=== PATIENT | female | born 1955 | race American Indian/Alaskan Native ===

== ENCOUNTER 2020-09-21 07:49 | Emergency (ER) | payer MEDICARE, OTHER ==
[2020-09-21 08:00] VITALS: BP 174/94
[2020-09-21] MEDS ORDERED: KETOROLAC 10 MG TAB PO ONE (08:39)
--- NOTE | 2020-09-21 10:13 | Emergency Department Report ---
ED General Adult HPI - General Chief complaint: Extremity Problem,Nontraumatic Stated complaint: NECK/ARM PAIN Time Seen by Provider: 09/21/20 08:36 Source: patient Mode of arrival: Ambulatory Limitations: No Limitations - History of Present Illness Initial comments: 65-year-old -[place] female patient with history of diabetes and hypertension presents with complaints of left-sided neck pain radiating down her arm with itchy burning rash x5 days. She denies any injuries to her neck, chest pain, shortness of breath, history of SC/CVA/DVT/PE, or difficulty moving her neck. She rates her current pain as a 5/10 in severity. She states she has been taking gabapentin for neuropathy and denies any numbness/tingling/weakness in her neck or arm or hand. She denies receiving the zoster vaccine, however she does admit to chickenpox as a child. Severity scale (0 -10): 6 - Related Data Home Medications Medication Instructions Recorded Confirmed Last Taken Acetaminophen [Acetaminophen TAB] 650 mg PO Q6HR PRN 02/21/15 02/21/15 02/21/15 Gabapentin [Neurontin] 600 mg PO QPM 02/21/15 02/21/15 02/20/15 Lisinopril/Hydrochlorothiazide 1 tab PO QDAY 02/21/15 02/21/15 02/21/15 [Zestoretic 10-12.5 mg] Previous Rx's Medication Instructions Recorded Last Taken Type Cefuroxime Axetil [Ceftin] 500 mg PO Q12H #14 tablet 02/23/15 Unknown Rx Acetaminophen/Codeine [Tylenol 1 tab PO Q8H PRN #8 tab 09/21/20 Unknown Rx /Codeine # 3 tab] Valacyclovir HCl [Valacyclovir] 1,000 mg PO Q8H #21 tablet 09/21/20 Unknown Rx Allergies Allergy/AdvReac Type Severity Reaction Status Date / Time No Known Allergies Allergy Unverified 04/27/14 13:35 ED Review of Systems ROS: Stated complaint: NECK/ARM PAIN Other details as noted in HPI Constitutional: denies: chills, diaphoresis, fever, malaise, weakness Respiratory: denies: cough, shortness of breath Cardiovascular: denies: chest pain, palpitations, edema, syncope Endocrine: denies: excessive sweating Gastrointestinal: denies: abdominal pain, nausea, vomiting Skin: rash Neurological: denies: headache, numbness, paresthesias, confusion Hematological/Lymphatic: denies: swollen glands ED Past Medical Hx - Past Medical History Previous Medical History?: Yes Hx Hypertension: Yes Hx Congestive Heart Failure: No Hx Diabetes: Yes Hx Asthma: No Hx COPD: No Hx HIV: No Additional medical history: Hx. of sciatic nerve pain and back pain - Surgical History Past Surgical History?: Yes Additional Surgical History: Rotator cuff surgery x 2 - Social History Smoking Status: Never Smoker - Medications Home Medications: Home Medications Medication Instructions Recorded Confirmed Last Taken Type Acetaminophen [Acetaminophen TAB] 650 mg PO Q6HR PRN 02/21/15 02/21/15 02/21/15 History Gabapentin [Neurontin] 600 mg PO QPM 02/21/15 02/21/15 02/20/15 History Lisinopril/Hydrochlorothiazide 1 tab PO QDAY 02/21/15 02/21/15 02/21/15 History [Zestoretic 10-12.5 mg] Cefuroxime Axetil [Ceftin] 500 mg PO Q12H #14 tablet 02/23/15 Unknown Rx Acetaminophen/Codeine [Tylenol 1 tab PO Q8H PRN #8 tab 09/21/20 Unknown Rx /Codeine # 3 tab] Valacyclovir HCl [Valacyclovir] 1,000 mg PO Q8H #21 tablet 09/21/20 Unknown Rx ED Physical Exam - General Limitations: No Limitations General appearance: alert, in no apparent distress, obese - Head Head exam: Present: atraumatic, normocephalic - Eye Eye exam: Present: normal appearance - ENT ENT exam: Present: normal exam - Neck Neck exam: Present: normal inspection, tenderness (Mild left trapezius muscle tenderness noted without any obvious deformity), full ROM. Absent: meningismus - Cardiovascular Cardiovascular Exam: Present: regular rate, normal rhythm, normal heart sounds - GI/Abdominal GI/Abdominal exam: Present: soft. Absent: distended, tenderness - Extremities Exam Extremities exam: Present: full ROM. Absent: tenderness - Back Exam Back exam: Present: normal inspection, full ROM - Neurological Exam Neurological exam: Present: alert, oriented X3, normal gait - Psychiatric Psychiatric exam: Present: normal affect, normal mood - Skin Skin exam: Present: warm, dry, intact, rash (Small fluid-filled vesicles noted on erythemic base to the left forearm along the C6/C7 dermatome consistent with shingles) ED Course Vital Signs 09/21/20 07:58 Temperature 98.8 F Pulse Rate 87 Respiratory 16 Rate Blood Pressure 174/94 [Right] O2 Sat by Pulse 98 Oximetry ED Medical Decision Making - Radiology Data 65-year-old -[place] female patient with history of diabetes and hypertension presents with complaints of left-sided neck pain radiating down her arm with itchy burning rash x5 days. She denies any injuries to her neck, chest pain, shortness of breath, history of SC/CVA/DVT/PE, or difficulty moving her neck. She rates her current pain as a 5/10 in severity. She states she has been taking gabapentin for neuropathy and denies any numbness/tingling/weakness in her neck or arm or hand. She denies receiving the zoster vaccine, however she does admit to chickenpox as a child. On exam, small fluid-filled vesicles noted on erythemic base to the left forearm along the C6/C7 dermatome consistent with shingles. Normal range of motion of the neck without obvious deformity yes please EKG is normal. Troponin is negative. Patient is well-appearing and stable for discharge home. Treatment for shingles given with valacyclovir and pain medication. Recommend follow-up with primary care in 3 to 5 days. Strict return precautions were discussed in detail with patient who verbalizes understanding. Is noted. Critical care attestation.: If time is entered above; I have spent that time in minutes in the direct care of this critically ill patient, excluding procedure time. ED Disposition Clinical Impression: Shingles Qualifiers: Herpes zoster complications: without complications Qualified Code(s): B02.9 - Zoster without complications Disposition: DC-01 TO HOME OR SELFCARE Is pt being admited?: No Condition: Stable Instructions: Herpes Zoster (ED) Prescriptions: Acetaminophen/Codeine [Tylenol /Codeine # 3 tab] 1 tab PO Q8H PRN #8 tab PRN Reason: Pain , Severe (7-10) Valacyclovir HCl [Valacyclovir] 1,000 mg PO Q8H #21 tablet Referrals: PRIMARY CARE, [Primary Care Provider] - 3-5 Days
== END 2020-09-21 10:22 | disposition home or self-care (01) ==
LOC: ED 07:49
DX: B02.9 Zoster without complications (principal); I10 Essential (primary) hypertension; E11.9 Type 2 diabetes mellitus without complications; Z79.899 Other long term (current) drug therapy
CPT/HCPCS: 36415; 84484; 93005; 99283